=== PATIENT | male | born 1975 | race African-American/Black ===

== ENCOUNTER 2023-08-18 10:52 | Outpatient (AMB) | payer OTHER, SELFPAY ==
--- NOTE | 2023-08-18 11:05 | HO.NEPHOV ---
HPI HPI Comments History of Present Illness Details Ariel was seen in the office in follow-up. He is on hemodialysis 3 times a week on Tuesday in [place] dialysis unit. He has cardiomyopathy and is closely [place] [facility] [place] [facility] [place] [facility] [place] He is compliant with his dialysis treatments. He is not strict with fluid restriction. He tries to be compliant with phosphorus binders and low-sodium diet along with medications. He has been having multiple episodes of chest pain for which he was seen in the emergency room and recently was given prednisone. He also has been having thrombophlebitis the right-sided chest wall. [facility] Medical History (Updated 08/18/23 @ 15:49 by Johnathon Calvo MD) Chronic kidney disease Hypertension Dialysis patient Family History (Updated 08/18/23 @ 11:10 by Harmony Funez MA) Mother Hypertension Pancreatic cancer Social History (Updated 08/18/23 @ 11:09 by Harmony Funez MA) Alcohol intake: never Patient Tobacco Use Status: Former Tobacco user Use of substances other than those prescribed or required for medical reasons: No Vital Signs 08/18/23 11:06 Height 5 ft 8 in Weight 237 lb 6 oz BMI 36.1 BP 120/78 Blood Pressure Location Rt brachial Position Sitting Pulse 67 Pulse Source Pulse Oximeter Pulse Oximetry (%) 99 Oxygen Delivery Method Room Air Physical Exam Vital Signs: Last Vital Signs Pulse 67 08/18/23 11:06 BP 120/78 08/18/23 11:06 Pulse Ox 99 08/18/23 11:06 Oxygen Delivery Method Room Air 08/18/23 11:06 BMI result Body Mass Index 36.1 Const General: comfortable and no acute distress Orientation/consciousness: patient oriented x3 HEENT Head: Yes normocephalic Mouth: Normal oral and palatal mucosa present Eyes EOM: EOMs intact bilaterally Neck Neck: Yes supple Resp Auscultation: clear to auscultation bilaterally Cardio Jugular venous distension: no JVD Rate: regular rate GI Palpation (GI): Soft to palpation Auscultation: normal bowel sounds General: Yes no CVA tenderness Back/Spine/Pelvis Back: no CVA tenderness Skin General skin exam: no rashes or lesions noted Neuro General: patient oriented x3 and moves all extremities Extrem General: Yes no pedal edema Assessment & Plan Assessment & Plan (1) ESRD (end stage renal disease) on dialysis: Code(s): N18.6 - End stage renal disease; Z99.2 - Dependence on renal dialysis (2) Hypertension: Code(s): I10 - Essential (primary) hypertension Qualifiers: Hypertension type: primary hypertension Qualified Code(s): I10 - Essential (primary) hypertension (3) Anemia in chronic kidney disease (CKD): Code(s): N18.9 - Chronic kidney disease, unspecified; D63.1 - Anemia in chronic kidney disease Qualifiers: Chronic kidney disease stage: on chronic dialysis Qualified Code(s): N18.6 - End stage renal disease; D63.1 - Anemia in chronic kidney disease; Z99.2 - Dependence on renal dialysis (4) Secondary hyperparathyroidism (of renal origin): Code(s): N25.81 - Secondary hyperparathyroidism of renal origin (5) Cardiomyopathy: Code(s): I42.9 - Cardiomyopathy, unspecified Qualifiers: Cardiomyopathy type: other Qualified Code(s): I42.8 - Other cardiomyopathies Vivi George has ESRD and is dialysis dependent. He has a functioning AV fistula on the left upper extremity. He was asked to cut back oral fluid intake and minimize inter dialytic weight gains. He is to take phosphorus binders prior to his meals including snacks. He is getting Mircera in the dialysis unit to maintain his hemoglobin over 10 grams/deciliter. His PTH, vitamin-D levels are monitored in the dialysis unit. He is trying to maintain low-sodium diet. He has regular follow-up in the [facility] failure [facility]. His hemoglobin A1c needs to be better controlled. He likely needs some help for his mental health. I have asked his income tax consultant whether he will be a candidate for heart and kidney transplant. I did not make any medication changes today but rather addressed all his current medical concerns. Coding Level of Care Code Est Pt Level 3 (06414) Diagnoses ESRD (end stage renal disease) on dialysis N18.6; Z99.2 Primary hypertension I10 Hypertension type: primary hypertension Anemia in chronic kidney disease, on chronic dialysis N18.6; D63.1; Z99.2 Chronic kidney disease stage: on chronic dialysis Secondary hyperparathyroidism (of renal origin) N25.81 Other cardiomyopathy I42.8 Cardiomyopathy type: other
[2023-08-18 11:06] VITALS: BP 120/78; PULSE 67; O2SAT 99; BMI 36.1
== END 2023-08-18 11:45 | disposition home or self-care (01) ==
PROVIDERS: Visit Provider Internal Medicine Nephrology
DX: N18.6 End stage renal disease (principal); Z99.2 Dependence on renal dialysis; I12.0 Hypertensive chronic kidney disease with stage 5 chronic kidney disease or end stage renal disease; D63.1 Anemia in chronic kidney disease; N25.81 Secondary hyperparathyroidism of renal origin; I42.8 Other cardiomyopathies
CPT/HCPCS: 99213

== ENCOUNTER → 2023-08-18 10:52 | Outpatient (BNVA) | payer OTHER, SELFPAY | PROVIDERS: Visit Provider Internal Medicine Nephrology | DX: I12.0 Hypertensive chronic kidney disease with stage 5 chronic kidney disease or end stage renal disease (principal); N18.6 End stage renal disease; D63.1 Anemia in chronic kidney disease; N25.81 Secondary hyperparathyroidism of renal origin; I42.8 Other cardiomyopathies; Z99.2 Dependence on renal dialysis | CPT/HCPCS: 99212 ==

== ENCOUNTER → 2023-09-19 | Outpatient (BNV) | payer OTHER, SELFPAY | PROVIDERS: Visit Provider Internal Medicine Nephrology | DX: N18.6 End stage renal disease (principal) | CPT/HCPCS: 90961 ==

== ENCOUNTER → 2023-10-20 | Outpatient (BNV) | payer OTHER, SELFPAY | PROVIDERS: Visit Provider Internal Medicine Nephrology | DX: N18.6 End stage renal disease (principal) | CPT/HCPCS: 90962 ==

== ENCOUNTER → 2023-11-18 | Outpatient (BNV) | payer OTHER, SELFPAY | PROVIDERS: Visit Provider Internal Medicine Nephrology | DX: N18.6 End stage renal disease (principal) | CPT/HCPCS: 90961 ==

== ENCOUNTER → 2024-01-18 | Outpatient (BNV) | payer OTHER, SELFPAY | PROVIDERS: Visit Provider Internal Medicine Nephrology | DX: N18.6 End stage renal disease (principal) | CPT/HCPCS: 90961 ==

== ENCOUNTER → 2024-02-18 | Outpatient (BNV) | payer OTHER, SELFPAY | PROVIDERS: Visit Provider Internal Medicine Nephrology | DX: N18.6 End stage renal disease (principal) | CPT/HCPCS: 90961 ==

== ENCOUNTER → 2024-03-19 | Outpatient (BNV) | payer OTHER, SELFPAY | PROVIDERS: Visit Provider Internal Medicine Nephrology | DX: N18.6 End stage renal disease (principal) | CPT/HCPCS: 90962 ==

== ENCOUNTER → 2024-04-19 | Outpatient (BNV) | payer OTHER, SELFPAY | PROVIDERS: Visit Provider Internal Medicine Nephrology | DX: N18.6 End stage renal disease (principal) | CPT/HCPCS: 90961 ==

== ENCOUNTER → 2024-05-20 | Outpatient (BNV) | payer OTHER, SELFPAY | PROVIDERS: Visit Provider Internal Medicine Nephrology | DX: N18.6 End stage renal disease (principal) | CPT/HCPCS: 90961 ==

== ENCOUNTER → 2024-06-19 | Outpatient (BNV) | payer OTHER, SELFPAY | PROVIDERS: Visit Provider Internal Medicine Nephrology | DX: N18.6 End stage renal disease (principal) | CPT/HCPCS: 90961 ==

== ENCOUNTER → 2024-07-20 | Outpatient (BNV) | payer OTHER, SELFPAY | PROVIDERS: Visit Provider Internal Medicine Nephrology | DX: N18.6 End stage renal disease (principal) | CPT/HCPCS: 90961 ==

== ENCOUNTER → 2024-08-19 | Outpatient (BNV) | payer OTHER, SELFPAY | PROVIDERS: Visit Provider Internal Medicine Nephrology | DX: N18.6 End stage renal disease (principal) | CPT/HCPCS: 90961 ==

== ENCOUNTER → 2024-09-19 | Outpatient (BNV) | payer OTHER, SELFPAY | PROVIDERS: Visit Provider Internal Medicine Nephrology | DX: N18.6 End stage renal disease (principal) | CPT/HCPCS: 90962 ==

== ENCOUNTER → 2024-10-20 | Outpatient (BNV) | payer OTHER, SELFPAY | PROVIDERS: Visit Provider Internal Medicine Nephrology | DX: N18.6 End stage renal disease (principal) | CPT/HCPCS: 90961 ==

== ENCOUNTER → 2024-11-17 | Outpatient (BNV) | payer OTHER, SELFPAY | PROVIDERS: Visit Provider Internal Medicine Nephrology | DX: N18.6 End stage renal disease (principal) | CPT/HCPCS: 90961 ==

== ENCOUNTER → 2024-12-18 | Outpatient (BNV) | payer OTHER, SELFPAY | PROVIDERS: Visit Provider Internal Medicine Nephrology | DX: N18.6 End stage renal disease (principal) | CPT/HCPCS: 90962 ==

== ENCOUNTER → 2025-01-17 | Outpatient (BNV) | payer OTHER, SELFPAY | PROVIDERS: Visit Provider Internal Medicine Nephrology | DX: N18.6 End stage renal disease (principal) | CPT/HCPCS: 90962 ==

== ENCOUNTER → 2025-03-19 23:59 | Outpatient (BNV) | payer OTHER, SELFPAY | PROVIDERS: Visit Provider Internal Medicine Nephrology | DX: N18.6 End stage renal disease (principal) | CPT/HCPCS: 90962 ==

== ENCOUNTER → 2025-04-19 23:59 | Outpatient (BNV) | payer OTHER, SELFPAY | PROVIDERS: Visit Provider Internal Medicine Nephrology | DX: N18.6 End stage renal disease (principal) | CPT/HCPCS: 90961 ==

== ENCOUNTER → 2025-05-20 23:59 | Outpatient (BNV) | payer OTHER, SELFPAY | PROVIDERS: Visit Provider Internal Medicine Nephrology | DX: N18.6 End stage renal disease (principal) | CPT/HCPCS: 90962 ==

== ENCOUNTER → 2025-06-19 23:59 | Outpatient (BNV) | payer OTHER, SELFPAY | PROVIDERS: Visit Provider Internal Medicine Nephrology | DX: N18.6 End stage renal disease (principal) | CPT/HCPCS: 90961 ==

== ENCOUNTER → 2025-08-19 23:59 | Outpatient (BNV) | payer OTHER, SELFPAY | PROVIDERS: Visit Provider Internal Medicine Nephrology | DX: N18.6 End stage renal disease (principal) | CPT/HCPCS: 90961 ==